=== PATIENT | female | born 1980 ===

== ENCOUNTER → 2020-12-01 | Outpatient (CLI) | payer MEDICAID | END | disposition home or self-care (01) | LOC: LAB 18:29 | PROVIDERS: ATTEND Physician Assistant | DX: Z20.822 Contact with and (suspected) exposure to COVID-19 (principal) | CPT/HCPCS: C9803; U0003 ==

== ENCOUNTER 2021-03-13 19:25 | Emergency (ER) | payer MEDICAID, OTHER ==
[~2021-03-13] VITALS: Ht 165.1 cm; Wt 68.0 kg
[2021-03-13 19:26] VITALS: BP 133/84
== END 2021-03-13 22:19 | disposition left against medical advice (07) ==
LOC: ER 19:25
DX: S61.452A Open bite of left hand, initial encounter (principal); Z53.21 Procedure and treatment not carried out due to patient leaving prior to being seen by health care provider; W54.0XXA Bitten by dog, initial encounter; Y93.89 Activity, other specified; Y92.89 Other specified places as the place of occurrence of the external cause; Y99.8 Other external cause status